=== PATIENT | female | born 1970 | race Caucasian/White ===

== ENCOUNTER 2018-11-17 05:08 | Inpatient (IN) | payer OTHER ==
[~2018-11-17] VITALS: Ht 154.9 cm; Wt 108.9 kg
[2018-11-17 05:09] VITALS: BP 135/66
--- NOTE | 2018-11-17 05:15 | NUR ---
PT PRESENTS TO ED FOR EVALUATION OF ABDOMINAL PAIN WITH N/V X 4 HRS. AAO X4, GCS 15, ABLE TO SPEAK WITH FULL COMPLETE SENTENCES. PUPILS PERRLA 3/3 MM. AMBULATORY WITH STEADY GAIT. RESPIRATIONS EVEN AND UNLABORED, BL LUNG CLEAR. SKIN WARM/PINK/DRY, +PMSC. ABDOMEN SOFT, NON- DISTENDED, ACTIVE BOWEL SOUND X 4. VSS, STATED ABDOMINAL PAIN 10/10. DR. ABEBE MADE AWARE OF PT STATUS
--- NOTE | 2018-11-17 05:15 | NUR ---
PT TAKEN TO BED 9
--- NOTE | 2018-11-17 05:20 | NUR ---
Dr. Zuniga evaluating patient at bedside.
[2018-11-17] MEDS ORDERED: NACL 0.9% 1,000 ML IV ONE ×2 (05:25→05:40)
[2018-11-17] MEDS ORDERED: MORPHINE SULFATE 4 MG/ML SYR IVP ONE ×3 (05:25→08:10)
[2018-11-17] MEDS ORDERED: ONDANSETRON 4 MG/2 ML VIAL IVP ONE ×2 (05:25→05:40)
[2018-11-17 05:39] LABS: BASOPHILS % (AUTO) 0.3 % (0.0-2.0); EOSINOPHILS # (AUTO) 0.2 K/uL (0-0.4); HEMOGLOBIN 14.7 g/dL (12.0-16.0); LYMPHOCYTES # (AUTO) 1.4 K/uL (2.5-16.5); LYMPHOCYTES % (AUTO) 12.6 % (20.5-51.1); MEAN CORPUSCULAR HEMOGLOBIN 28 pg (27-31); MEAN CORPUSCULAR HGB CONC 33 g/dL (33-37); MONOCYTES # (AUTO) 0.7 K/uL (0.8-1.0); MONOCYTES % (AUTO) 6.1 % (1.7-9.3); NEUTROPHILS # (AUTO) 9.1 K/uL (1.8-7.7); PLATELET COUNT (AUTO) 218 K/uL (140-450); RED BLOOD CELL COUNT(AUTO) 5.17 MIL/uL (4.20-5.40); RED CELL DISTRIBUTION WIDTH 14.4 % (11.6-13.7); WHITE BLOOD COUNT (AUTO) 11.5 K/uL (4.8-10.8)
[2018-11-17] MEDS ORDERED: ONDANSETRON 4 MG/2 ML VIAL ONE (05:56)
[2018-11-17] MEDS ORDERED: MORPHINE SULFATE 4 MG/ML SYR ONE (05:57)
--- NOTE | 2018-11-17 05:57 | NUR ---
ORDER WRITTEN BY BUT NOT SHOW IN [facility] AND [facility]. UNABLE TO RESOLVE ISSUE THIS TIME. CONTINUE TO ADMINISTER NSS IV TO RUN 100 ML/HR, ZOFRAN 4 MG IVP X1, MORPHINE 4 MG IVP X1. WILL CONTINUE TO MONITOR
--- NOTE | 2018-11-17 06:06 | NUR ---
Ultrasound at bedside.
[2018-11-17 06:08] LABS: ANION GAP 13.6 (8-16); CREATININE 0.7 mg/dL (0.6-1.3); POTASSIUM 3.6 mmol/L (3.5-5.1)
[2018-11-17 06:15] LABS: ALBUMIN 3.7 g/dL (3.4-5.0); TOTAL BILIRUBIN 3.2 mg/dL (0.0-1.0)
[2018-11-17 07:06] LABS: APPEARANCE,URINE SL CLOUDY (CLEAR); BILIRUBIN,URINE 3+ (NEGATIVE); BLOOD, URINE NEGATIVE (NEGATIVE); COLOR,URINE ORANGE (YELLOW); LEUKOCYTE ESTERASE ,URINE TRACE (NEGATIVE); NITRITE, URINE NEGATIVE (NEGATIVE); UGLUCOSE TRACE (NEGATIVE)
[2018-11-17 07:08] LABS: RBC,URINE NONE SEEN /HPF (0-5); WBC,URINE 0-5 (RARE) /HPF (0-5)
--- NOTE | 2018-11-17 07:23 | NUR ---
REPORT GIVEN TO YAHIR COLLINS. NSS IV 100 ML/ML STILL RUNNING. TOTAL INTAKE 150 ML AT THIS TIME
--- NOTE | 2018-11-17 07:30 | NUR ---
RECEIVED PT FROM PM NURSE. PT AWAKE, ALERT. ABLE TO MAKE NEEDS KNOWN. CITIZEN OF [place] SPEAKING. BEDSIDEM ONTIOR SHOWS HR 58-65S. BP 113/70. ROOM AIR, O2 SATS 95%. INTRODUCED MYSELF. SAFETY CHECKED. WILL CONTINUE TO MONITOR.
--- NOTE | 2018-11-17 07:35 | NUR ---
PT HAS IV TO RIGHT FA # 20 RUNNING NS AT 100 MLS/HR .
[2018-11-17] MEDS: NACL 0.9% 1,000 ML IV SCH ×2 (08:14→10:13)
[2018-11-17] MEDS ORDERED: ONDANSETRON 4 MG/2 ML VIAL IVP PRN (08:15)
[2018-11-17] MEDS ORDERED: LORazepam 2 MG/ML VIAL IVP PRN (08:15)
[2018-11-17 09:15] VITALS: BP 114/67
--- NOTE | 2018-11-17 09:15 | NUR ---
RECEIVED BEDSIDE REPORT FROM KARINA SINCLAIR. PT STABLE, AWAKE, AND ALERT. DENIES PAIN. NO SIGNS OF DISTRESS NOTED. NO INFLAMMATION, REDNESS, OR SWELLING NOTED ON IV SITE. CALL MICHAELS WITHIN REACH. SAFETY MEASURES IN PLACE. PLAN OF CARE REVIEWED.
--- NOTE | 2018-11-17 09:15 | NUR ---
PT TRASSFERRED TO [facility] A BY WHEELCHAIR.AWAKE, ALERT. RA, NO SOB. REPORT GIVEN. PT WALKED FROM HALLWAY TO PT'S ROOM. VITALS STABLE AT THIS TIME.
--- NOTE | 2018-11-17 09:59 | NUR ---
PATIENT HAS BEEN SCREENED AND CATEGORIZED HIGH NUTRITION RISK. PATIENT WILL BE SEEN WITHIN 1-2 DAYS OF ADMISSION. 11/17/18-11/18/[address]
--- NOTE | 2018-11-17 11:15 | NUR ---
MORPHINE AND ZOFRAN NON-ADMIN IN THE [facility] D/T ADMINISTERED IN THE ER PRIOR TO ARRIVING IN THE UNIT.
[2018-11-17] MEDS: PIPER/TAZO 3.375GM/D5W PREMIX 50 ML IV SCH ×2 (13:04→20:35)
[2018-11-17] MEDS: MORPHINE SULFATE 2 MG/ML SYR IVP PRN ×2 (13:05→20:37)
--- NOTE | 2018-11-17 13:05 | NUR ---
ADMINISTERED SCHEDULED MEDICATION AND MORPHINE FOR 5/10 [id number] PAIN. PT TOLERATED WELL. NO OTHER NEEDS AT THIS TIME.
--- NOTE | 2018-11-17 15:30 | NUR ---
PT STABLE, SLEEPING, BUT EASILY AROUSABLE. NO OTHER NEEDS AT THIS TIME.
[2018-11-17 16:00] VITALS: BP 132/81
--- NOTE | 2018-11-17 17:25 | NUR ---
SPOKE WITH PATIENT REGARDING PLAN OF CARE.
--- NOTE | 2018-11-17 19:10 | NUR ---
RECEIVED PT FROM DAY SHIFT NURSE PT COMORAN SPEAKER AAOX4 AMBULATORY IV ON RT HAND INFUSING WELL DENIES ANY PAINAT THIS TIME PT NKPO FOR DX PANCREATITIS INITIAL ASSESSMENT DONE
--- NOTE | 2018-11-17 19:20 | NUR ---
ENDORSED PT TO RN AMY FOR CONTINUITY OF CARE. PT STABLE, AWAKE, AND ALERT.
--- NOTE | 2018-11-17 21:30 | NUR ---
DR LEON IS HERE AND SEE THE PT .AND DR FLORES ORDER FOR ERCP TOMORROW
[2018-11-18] VITALS: BP 114/73
--- NOTE | 2018-11-18 | NUR ---
PT RESTING ON BED IV ON RT HAND INFUSING WELL NOT DISTRESS NOTED AT THIS TIME
--- NOTE | 2018-11-18 04:00 | NUR ---
SPONGE BATH GIVEN LILNEN CHANGED DENIES ANY PAIN AT THIS TIME, VOIDING WELL IV ON RT HAND INFUSING WELL
[2018-11-18] MEDS: NACL 0.9% 1,000 ML IV SCH ×2 (04:16→19:00)
[2018-11-18] MEDS: PIPER/TAZO 3.375GM/D5W PREMIX 50 ML IV SCH ×3 (04:25→21:10)
--- NOTE | 2018-11-18 05:04 | NUR ---
PT NPO DENIES ANY PAIN AT THIS TIME ON SCHEDULE TO HAVE ERCP TODAY BY DR FINNEGAN
[2018-11-18] MEDS: MORPHINE SULFATE 2 MG/ML SYR IVP PRN ×3 (06:19→22:20)
[2018-11-18 06:23] LABS: BASOPHILS % (AUTO) 0.2 % (0.0-2.0); EOSINOPHILS % (AUTO) 0.1 % (0.0-4.0); HEMATOCRIT 42.8 % (36-48); HEMOGLOBIN 13.7 g/dL (12.0-16.0); LYMPHOCYTES # (AUTO) 1.5 K/uL (2.5-16.5); LYMPHOCYTES % (AUTO) 11.6 % (20.5-51.1); MEAN CORPUSCULAR HEMOGLOBIN 28 pg (27-31); MEAN CORPUSCULAR HGB CONC 32 g/dL (33-37); MEAN CORPUSCULAR VOLUME 88.4 fL (80-94); MONOCYTES # (AUTO) 0.8 K/uL (0.8-1.0); NEUTROPHILS # (AUTO) 10.9 K/uL (1.8-7.7); NEUTROPHILS % (AUTO) 82.1 % (42.2-75.2); PLATELET COUNT (AUTO) 206 K/uL (140-450); RED BLOOD CELL COUNT(AUTO) 4.84 MIL/uL (4.20-5.40); RED CELL DISTRIBUTION WIDTH 14.3 % (11.6-13.7); WHITE BLOOD COUNT (AUTO) 13.2 K/uL (4.8-10.8)
--- NOTE | 2018-11-18 06:27 | NUR ---
AFTER LPAIN MEDIC GIVEN PT GETTING SLEEP
[2018-11-18 06:38] LABS: ANION GAP 9.2 (8-16); CARBON DIOXIDE 25.8 mmol/L (21-32); CREATININE 0.6 mg/dL (0.6-1.3); MAGNESIUM 1.9 mg/dL (1.8-2.4); TOTAL BILIRUBIN 1.1 mg/dL (0.0-1.0)
[2018-11-18 06:54] LABS: PROTHROMBIN TIME 10.8 secs (10.8-13.4)
--- NOTE | 2018-11-18 07:10 | NUR ---
RECEIVED BEDSIDE REPORT FROM KARINA REYES. PT STABLE, AWAKE, AND ALERT. NO SIGNS OF DISTRESS NOTED. DENIES PAIN. NO INFLAMMATION, REDNESS, OR SWELLING NOTED ON IV SITE. CALL MICHAELS WITHIN REACH. BED IN LOW POSITION. SAFETY MEASURES IN PLACE. PLAN OF CARE REVIEWED.
[2018-11-18 08:00] VITALS: BP 121/76
--- NOTE | 2018-11-18 10:30 | NUR ---
ADMINISTERED MORPHINE FOR 7/10 ABDOMINAL PAIN. PT TOLERATED WELL. NO OTHER NEEDS AT THIS TIME.
--- NOTE | 2018-11-18 12:30 | NUR ---
PT STABLE, AWAKE, AND ALERT. INSTRUCTED PT REGARDING PLAN OF CARE. NO OTHER NEEDS AT THIS TIME.
--- NOTE | 2018-11-18 13:30 | NUR ---
11/18/18 RD INITIAL ASSESSMENT COMPLETED PLEASE REFER TO NUTRITION ASSESSMENT UNDER CARE ACTIVITY FOR ESTIMATED NUTRITIONAL NEEDS. 1. CONTINUE NPO MEDICALLY APPROPRIATE 2. IF/WHEN PATIENT IS MEDICALLY STABLE CONSIDER ADVANCING TO CLEAR LIQUID DIET FOLLOWED BY FULL LIQUID AND BLAND DIET TOLERATED 3. RD PROVIDED NUTRITION EDUCATION FOR PANCREATITIS 4. RD TO FOLLOW-UP 3-5 DAYS, MODERATE RISK SILVIO BATES RD
[2018-11-18] MEDS ORDERED: PROPOFOL 200 MG/20 ML VIAL IV ONE (13:58)
[2018-11-18] MEDS ORDERED: KCL 20 MEQ/WATER INJ PREMIX 100 ML IV SCH (14:00)
[2018-11-18] MEDS ORDERED: MIDAZOLAM 2 MG/2 ML VIAL ONE (14:03)
--- NOTE | 2018-11-18 14:05 | NUR ---
RECEIVED TELEPHONE ORDER FROM DR. ISRAEL FOR K-RIDER 40MEQ IV OVER 4 HRS. PT IS IN THE OR FOR ERCP, PACU WILL GIVE 1ST BAG OF K-RIDER 20MEQ IV AFTER PROCEDURE, 2ND BAG K-RIDER 20MEQ IV WILL BE GIVEN IN THE UNIT AFTER 1ST BAG IS DONE INFUSING.
--- NOTE | 2018-11-18 15:10 | NUR ---
PT ARRIVED IN THE UNIT FROM PACU WITH K-RIDER 20MEQ IV INFUSING. PT STABLE.
--- NOTE | 2018-11-18 15:50 | NUR ---
Received telephone order from Dr Alatorre: CBC, CMP, & lipase in am, & NPO except meds after midnight for lap camilla tomorrow. Orders noted. Pt aware & agree with plan of care.
[2018-11-18 16:00] VITALS: BP 114/63
[2018-11-18] MEDS: KCL 20 MEQ/WATER INJ PREMIX 100 ML IV SCH ×2 (16:15→17:30)
--- NOTE | 2018-11-18 17:30 | NUR ---
ADMINISTERED 2ND BAG OF K-RIDER 20MEQ IV. PT TOLERATED WELL.
--- NOTE | 2018-11-18 19:10 | NUR ---
ENDORSED PT TO BRANCH ADMINISTRATOR NURSE. PT STABLE, AWAKE, AND ALERT.
--- NOTE | 2018-11-18 19:11 | NUR ---
RECEIVED REPORT FROM RN SARINA GONZALEZ FOR CONTINUITY OF CARE. PT A/OX4 ON ROOM AIR, JAPANESE SPEAKING. PT IS ABLE TO MAKE NEEDS KNOWN, ABLE TO FOLLOW COMMANDS. PT AMBULATES WITH STEADY GAIT AND SKIN IS INTACT. PT HAS A 20G IV TO RIGHT HAND, ASYMPTOMATIC AND INTACT. VITAL SIGNS WITHIN NORMAL LIMITS. PT STABLE, DENIES HAVING ANY PAIN, NO SIGNS OF DISTRESS NOTED AT THIS TIME. PT POSITIONED FOR COMFORT. BED IN LOWEST POSITION, BED ALARM ON. WILL CONTINUE TO MONITOR.
--- NOTE | 2018-11-18 21:10 | NUR ---
ADMINISTERED SCHEDULED MEDICATIONS, PT TOLERATING WELL. WILL CONTINUE TO MONITOR PT.
--- NOTE | 2018-11-18 23:45 | NUR ---
VITAL SIGNS WITHIN NORMAL LIMITS. PT STABLE, DENIES HAVING ANY PAIN, NO SIGNS OF DISTRESS NOTED AT THIS TIME. PT POSITIONED FOR COMFORT. BED IN LOWEST POSITION, BED ALARM ON. WILL CONTINUE TO MONITOR.
[2018-11-19] VITALS: BP 135/75
[2018-11-19] MEDS: NACL 0.9% 1,000 ML IV SCH (00:58)
--- NOTE | 2018-11-19 01:55 | NUR ---
TEMPERATURE SLIGHTLY ELEVATED AT 99.8, TURNED OFF WARM TEMPERATURE BECAUSE ROOM IS VERY HOT, AND TOOK OFF PT THICK PLUSH BLANKET, WILL REASSESS TEMP. OTHER VITAL SIGNS WITHIN NORMAL LIMITS. PT STABLE, DENIES HAVING ANY PAIN, NO SIGNS OF DISTRESS NOTED AT THIS TIME. PT POSITIONED FOR COMFORT. BED IN LOWEST POSITION, BED ALARM ON. WILL CONTINUE TO MONITOR.
--- NOTE | 2018-11-19 05:00 | NUR ---
GOT CONSENT FOR BLOOD TRANSFUSION.
[2018-11-19] MEDS: PIPER/TAZO 3.375GM/D5W PREMIX 50 ML IV SCH ×3 (05:06→20:27)
--- NOTE | 2018-11-19 07:15 | NUR ---
PT HAS BEEN TAKEN TO OR.
--- NOTE | 2018-11-19 07:20 | NUR ---
RECEIVED PT'S REPORT FROM SHANK CEMENTER HAND NURSE SUN. PT WENT FOR CHOLECYSTECTOMY SX.
--- NOTE | 2018-11-19 07:24 | NUR ---
ENDORSED PT TO DAY SHIFT RN STEVEN FOR CONTINUITY OF CARE. PT IN STABLE CONDITION.
[2018-11-19 07:39] LABS: BASOPHILS # (AUTO) 0.1 K/uL (0.00-0.22); BASOPHILS % (AUTO) 0.4 % (0.0-2.0); EOSINOPHILS # (AUTO) 0.1 K/uL (0-0.4); EOSINOPHILS % (AUTO) 0.4 % (0.0-4.0); HEMATOCRIT 40.7 % (36-48); HEMOGLOBIN 13.2 g/dL (12.0-16.0); LYMPHOCYTES # (AUTO) 2.3 K/uL (2.5-16.5); LYMPHOCYTES % (AUTO) 14.8 % (20.5-51.1); MEAN CORPUSCULAR HEMOGLOBIN 29 pg (27-31); MEAN CORPUSCULAR HGB CONC 32 g/dL (33-37); MEAN CORPUSCULAR VOLUME 87.8 fL (80-94); MONOCYTES # (AUTO) 1.3 K/uL (0.8-1.0); MONOCYTES % (AUTO) 8.3 % (1.7-9.3); NEUTROPHILS # (AUTO) 11.9 K/uL (1.8-7.7); NEUTROPHILS % (AUTO) 76.1 % (42.2-75.2); PLATELET COUNT (AUTO) 215 K/uL (140-450); RED BLOOD CELL COUNT(AUTO) 4.63 MIL/uL (4.20-5.40); RED CELL DISTRIBUTION WIDTH 14.4 % (11.6-13.7); WHITE BLOOD COUNT (AUTO) 15.6 K/uL (4.8-10.8)
[2018-11-19] MEDS ORDERED: DESFLURANE 240 ML BTL INH ONE (07:42)
[2018-11-19] MEDS ORDERED: KETOROLAC 30 MG/ML VIAL ONE (07:42)
[2018-11-19] MEDS ORDERED: GLYCOPYRROLATE 0.2 MG/ML VIAL ONE (07:42)
[2018-11-19] MEDS ORDERED: DEXAMETHASONE 4 MG/ML VIAL ONE (07:42)
[2018-11-19] MEDS ORDERED: PHENYLEPHRINE 10 MG/ML VIAL ONE (07:42)
[2018-11-19] MEDS ORDERED: PROPOFOL 200 MG/20 ML VIAL IV ONE (07:42)
[2018-11-19] MEDS ORDERED: ROCURONIUM 50 MG/5 ML VIAL IV ONE (07:42)
[2018-11-19] MEDS ORDERED: ONDANSETRON 4 MG/2 ML VIAL ONE (07:42)
[2018-11-19] MEDS ORDERED: BUPIVACAINE-MPF/EPI 0.5% 30 ML VIAL INJ ONE (07:46)
[2018-11-19] MEDS ORDERED: fentaNYL 0.05 MG/ML VIAL ONE (07:47)
[2018-11-19] MEDS ORDERED: HYDROmorphone PFS 2 MG/ML SYR ONE (07:47)
[2018-11-19] MEDS ORDERED: HYDROmorphone 1 MG/ML AMP IVP PRN ×2 (08:05)
[2018-11-19] MEDS ORDERED: ONDANSETRON 4 MG/2 ML VIAL IVP PRN (08:05)
[2018-11-19 08:07] LABS: CARBON DIOXIDE 27.1 mmol/L (21-32); CREATININE 0.6 mg/dL (0.6-1.3); POTASSIUM 3.1 mmol/L (3.5-5.1)
[2018-11-19 08:12] LABS: ALBUMIN 2.9 g/dL (3.4-5.0); TOTAL BILIRUBIN 0.9 mg/dL (0.0-1.0)
[2018-11-19] MEDS ORDERED: THROMBIN KIT 20 MU VIAL TP ONE (08:54)
--- NOTE | 2018-11-19 10:15 | NUR ---
PT IS BACK FROM OR. PT IS AAOX4 ON 4L SIMPLE MASK, NO S/S OF ACUTE DISTRESS NOTED. PT IS ABLE TO FOLLOW COMMANDS. IV CATH 20G IV TO RIGHT HAND, ASYMPTOMATIC AND INTACT. VITAL SIGNS WITHIN NORMAL LIMITS. PT DENIES NAUSEA, PAIN IS A LITTLE. BED IN LOWEST POSITION, CALL LIGHT WITHIN REACH. WILL CONTINUE TO MONITOR. Addendum: 11/19/18 at 1202 by Moe Murphy RN BRENT ANIKET WAS DONE. INCISIONS CLEAN AND DRY WITH DERMABOND GLUE.
[2018-11-19 10:30] VITALS: BP 116/62
[2018-11-19] MEDS: DEXT 5% / NACL 0.45% 1,000 ML IV SCH ×2 (10:45→20:26)
--- NOTE | 2018-11-19 13:00 | NUR ---
SPOKE WITH DR ISRAEL OVER THE PHONE, MADE HIM AWARE OF K 3.1, ORDERED PO 40MEQ K-DUR ONCE. VERBALLY READ BACK.
[2018-11-19] MEDS ORDERED: POTASSIUM CHLORIDE 10 MEQ TABER PO SCH (13:30)
[2018-11-19 16:00] VITALS: BP 114/72
--- NOTE | 2018-11-19 16:08 | NUR ---
SPOKE WITH DR ISRAEL OVER THE PHONE, REPORT PT C/O ABD SEVERE PAIN. DR ISRAEL ORDERED TORADOL 30MG IVP PRN Q6H.
[2018-11-19] MEDS ORDERED: KETOROLAC 30 MG/ML VIAL IVP PRN (16:10)
[2018-11-19] MEDS: HYDROcodone/APAP 5/325 MG 1 TAB TAB PO PRN ×2 (17:18→22:23)
--- NOTE | 2018-11-19 18:35 | NUR ---
PT WENT TO BATHROOM WITH ASSISTANCE FROM HAND MARKER, PT URINATED.
--- NOTE | 2018-11-19 19:20 | NUR ---
ENDORSED PT TO DRIVER SUPERVISOR RN. PT IN STABLE CONDITION.
--- NOTE | 2018-11-19 19:21 | NUR ---
RECEIVED REPORT FROM DAY SHIFT RN. PT IS A&OX4. MAURITIAN SPEAKING. 2 SONS AT BEDSIDE. RESPIRATIONS ARE EQUAL AND UNLABORED. PT STATES PAIN TOLERABLE AT THIS TIME. S/P LAP ANIKET TODAY. 4 INCISIONS OPEN TO AIR. NO DRAINAGE. OTHERWISE SKIN INTACT. PT IS AMBULATORY. IV ON R HAND 20 G IVF INFUSING PER ORDERS. PLAN OF CARE DISCUSSED. SAFETY MEASURES ARE IN PLACE. CALL LIGHT WITHIN REACH.
--- NOTE | 2018-11-19 20:27 | NUR ---
DUE MEDICATIONS ADMINISTERED PT TOLERATED WELL. ANSWERED ALL QUESTIONS FROM PATIENT AND FAMILY. WILL CONTINUE TO MONITOR.
[2018-11-19 23:59] VITALS: BP 116/74
--- NOTE | 2018-11-20 | NUR ---
VS ARE WITHIN NORMAL LIMITS. PT DENIES ANY PAIN AT THIS TIME. ALL NEEDS MET. CALL LIGHT WITHIN REACH.
--- NOTE | 2018-11-20 03:00 | NUR ---
PT RESTING COMFORTABLY IN BED. RESPIRATIONS ARE EQUAL AND UNLABORED. CALL LIGHT WITHIN REACH
[2018-11-20] MEDS: DEXT 5% / NACL 0.45% 1,000 ML IV SCH ×2 (05:06→15:15)
[2018-11-20] MEDS: PIPER/TAZO 3.375GM/D5W PREMIX 50 ML IV SCH ×2 (05:07→12:44)
--- NOTE | 2018-11-20 05:07 | NUR ---
ZOSYN NOW INFUSING PER ORDERS. ALL NEEDS MET AT THIS TIME. WILL CONTINUE TO MONITOR.
--- NOTE | 2018-11-20 07:10 | NUR ---
ENDORSED TO DAY SHIFT RN. PT IS IN STABLE CONDITION.
--- NOTE | 2018-11-20 07:13 | NUR ---
RECEIVED REPORT FROM DAY SHIFT RN. PT IS A&OX4. NEPALI SPEAKING. PT STATES PAIN TOLERABLE AT THIS TIME. S/P LAP ANIKET, 4 INCISIONS DERMABOUND GLUE OPEN TO AIR. NO DRAINAGE. SKIN IS OTHERWISE INTACT. TOLERATING CLEAR LIQUIDS WELL- NO C/O N/V. BOWEL SOUNDS PRESENT IN ALL QUADRANTS. PT IS AMBULATORY. IV ON R HAND 20 G PATENT AND ASYMPTOMATIC, INFUSING IVF PER ORDERS. PLAN OF CARE DISCUSSED. SAFETY MEASURES ARE IN PLACE. CALL LIGHT WITHIN REACH.
[2018-11-20 07:19] LABS: ALBUMIN 2.5 g/dL (3.4-5.0); ANION GAP 8.3 (8-16); CREATININE 0.6 mg/dL (0.6-1.3); POTASSIUM 3.3 mmol/L (3.5-5.1); TOTAL BILIRUBIN 0.5 mg/dL (0.0-1.0)
[2018-11-20 07:37] LABS: BASOPHILS % (AUTO) 0.1 % (0.0-2.0); EOSINOPHILS # (AUTO) 0.1 K/uL (0-0.4); EOSINOPHILS % (AUTO) 0.6 % (0.0-4.0); HEMATOCRIT 37.7 % (36-48); HEMOGLOBIN 12.1 g/dL (12.0-16.0); LYMPHOCYTES % (AUTO) 12.7 % (20.5-51.1); MEAN CORPUSCULAR HEMOGLOBIN 28 pg (27-31); MEAN CORPUSCULAR HGB CONC 32 g/dL (33-37); MEAN CORPUSCULAR VOLUME 88.3 fL (80-94); MONOCYTES # (AUTO) 1.2 K/uL (0.8-1.0); MONOCYTES % (AUTO) 7.7 % (1.7-9.3); NEUTROPHILS # (AUTO) 12.7 K/uL (1.8-7.7); NEUTROPHILS % (AUTO) 78.9 % (42.2-75.2); PLATELET COUNT (AUTO) 205 K/uL (140-450); RED BLOOD CELL COUNT(AUTO) 4.27 MIL/uL (4.20-5.40); RED CELL DISTRIBUTION WIDTH 14.7 % (11.6-13.7); WHITE BLOOD COUNT (AUTO) 16.1 K/uL (4.8-10.8)
[2018-11-20 08:00] VITALS: BP 125/75
[2018-11-20] MEDS: HYDROcodone/APAP 5/325 MG 1 TAB TAB PO PRN (09:37)
[2018-11-20] MEDS ORDERED: ACET-9525 PO (13:34)
[2018-11-20] MEDS ORDERED: POTASSIUM CHLORIDE 10 MEQ TABER PO SCH (14:00)
--- NOTE | 2018-11-20 15:23 | NUR ---
D/C PHOTOS TAKEN OF SURGICAL WOUND ON ABD.
--- NOTE | 2018-11-20 16:00 | NUR ---
DISCHARGE PAPERWORK, INCLUDING INSTRUCTIONS TO F/U WITH DR. LEON (SURGEON) AND PCP WITHIN ONE WEEK, GIVEN TO PT. PT IS SYRIAC SPEAKING BUT PREFERS SON AT BEDSIDE TO TRANSLATE. NEW RX GIVEN TO PT. MEDICATION TEACHING GIVEN. PT INSTRUCTED ON HOW TO CARE FOR INCISIONAL SITES. OFFERED PNEUMOVAX BUT PATIENT REFUSED. VACCINATION DECLINATION TEACHING GIVEN. FLU VACCINE UP TO DATE. PT AND SON VERBALIZED COMPLETE UNDERSTANDING OF ALL D/C TEACHING. IV SITE REMOVED WITH MINIMAL BLOOD LOSS AND LUMEN COMPLETELY INTACT. ID BANDS REMOVED. ALL PERSONAL BELONGINGS ARE WITH PATIENT. DISCHARGED FROM UNIT VIA WHEELCHAIR AND WILL GO HOME WITH SON VIA PRIVATE VEHICLE. PT IN STABLE CONDITION.
[2018-11-20] MEDS ORDERED: [UNRECOGNIZED DRUG - CODE] SQ (16:14)
--- NOTE | 2018-11-22 11:26 | NUR ---
CM NOTE ATTEMPTED TO SCHEDULE AN OUTPATIENT FOLLOW UP APPOINTMENT WITH PCP FOR PATIENT. PER SOFIA OF [facility] (PCP) PH# [phone], CLINIC ADDRESS [address] [id number], THEY ARE A WALK-IN CLINIC AND THEY DON'T SCHEDULE APPOINTMENTS AND PATIENT JUST HAS TO GO TO THEIR CLINIC TO BE SEEN BY THE DOCTOR. CALLED PATIENT PH# [phone] WITH DUSTY MONTGOMERY BECAUSE PATIENT IS [place] SPEAKING ONLY AND PATIENT WAS INFORMED THAT SHE HAS TO FOLLOW UP WITH HER PCP WITHIN A WEEK OF DISCHARGE AND INFORMATION REGARDING HER PCP INCLUDING PHONE NUMBER AND CLINIC ADDRESS WERE GIVEN TO THE PATIENT. PATIENT VERBALIZED UNDERSTANDING AND STATED THAT SHE WILL GO TO SEE HER PCP WITHIN THE WEEK. Addendum: 11/22/18 at [address] [facility] SCHEDULE MONDAYS TO FRIDAYS F 8AM-8PM, SATURDAYS 8:30AM-5PM, SUNDAYS 9AM-4PM, ADRESS: [address] [facility] [place] [address], PH# [phone] Addendum: 11/22/18 at 1132 by Génesis Brenner CM [facility] SCHEDULE INFORMATION ALSO GIVEN TO THE PATIENT DURING THIS CALL.
== END 2018-11-20 16:00 | disposition home or self-care (01) | DRG 263 ==
LOC: MED 05:08 → MTU 08:14
PROVIDERS: ADMIT Hospitalist; ATTEND Hospitalist
PROC: BF131ZZ Fluoroscopy of Gallbladder and Bile Ducts using Low Osmolar Contrast (ICD-10-PCS; 2018-11-18)
PROC: 0FC98ZZ Extirpation of Matter from Common Bile Duct, Via Natural or Artificial Opening Endoscopic (ICD-10-PCS; principal; 2018-11-18 14:00)
PROC: 0FT44ZZ Resection of Gallbladder, Percutaneous Endoscopic Approach (ICD-10-PCS; 2018-11-19)
DX: K85.10 Biliary acute pancreatitis without necrosis or infection (principal); E66.01 Morbid (severe) obesity due to excess calories; J45.909 Unspecified asthma, uncomplicated; K80.51 Calculus of bile duct without cholangitis or cholecystitis with obstruction; Z90.49 Acquired absence of other specified parts of digestive tract; Z68.42 Body mass index [BMI] 45.0-49.9, adult; K80.70 Calculus of gallbladder and bile duct without cholecystitis without obstruction; D72.829 Elevated white blood cell count, unspecified
CPT/HCPCS: 36415; 71045; 74330; 76705; 80053; 81001; 82150; 83690; 83735; 85025; 85610; 85730; 86886; 86900; 86901; 87081; 88304; 93005; 96374; 99285; C1727; C1769; J1100; J1170; J1885; J2250; J2270; J2370; J2405; J2543; J2704; J3010; J3480; J3490; J7030; Q0092

== ENCOUNTER 2020-08-09 09:48 | Emergency (ER) | payer OTHER ==
[~2020-08-09] VITALS: Ht 162.6 cm; Wt 112.0 kg
[~2020-08-09 09:48] MED LIST: ACET-9525 PO; [UNRECOGNIZED DRUG - CODE] SQ
[2020-08-09 09:51] VITALS: BP 117/60
--- NOTE | 2020-08-09 10:06 | NUR ---
49 y/o female from home c/o dry cough and sore throat x 4 days. Denies chest pain/sob. RR even and unlabored. Pt afebrile upon arrival. Denies body aches. 5/10 sharp pain with swallowing. Denies N/V/D. Awake and alert. VSS medhx: asthma
--- NOTE | 2020-08-09 10:07 | NUR ---
Dr Koenig at bedside examining pt
[2020-08-09] MEDS ORDERED: KETOROLAC 60 MG/2 ML VIAL IM ONE (10:10)
--- NOTE | 2020-08-09 10:47 | NUR ---
Pt states decrease in pain after medication. VSS
[2020-08-09 10:58] VITALS: BP 117/60
--- NOTE | 2020-08-09 10:58 | NUR ---
Patient discharged with v/s stable. Written and verbal after care instructions given and explained. Patient alert, oriented and verbalized understanding of instructions. Ambulatory with steady gait. All questions addressed prior to discharge. ID band removed. Patient advised to follow up with PMD. Rx of Motrin 800mg, Cipro 500mg, Albuterol 90mcg/actuation, and Prednisone 20mg given. Patient educated on indication of medication including possible reaction and side effects. Opportunity to ask questions provided and answered.
== END 2020-08-09 10:58 | disposition home or self-care (01) ==
LOC: MED 09:48
DX: N39.0 Urinary tract infection, site not specified (principal); R51.9 Headache, unspecified; J02.9 Acute pharyngitis, unspecified; R05 Cough; J45.909 Unspecified asthma, uncomplicated; Z79.899 Other long term (current) drug therapy; Z90.49 Acquired absence of other specified parts of digestive tract
CPT/HCPCS: 81002; 81025; 96372; 99283; J1885

== ENCOUNTER 2020-09-20 23:44 | Emergency (ER) | payer OTHER ==
[~2020-09-20] VITALS: Ht 162.6 cm; Wt 113.4 kg
[2020-09-20 23:50] VITALS: BP 112/79
--- NOTE | 2020-09-20 23:50 | NUR ---
TO TENT# 2 AMBULATORY
--- NOTE | 2020-09-21 00:40 | NUR ---
SEEN AND EXAMINED BY JOSE WITH ORDER AND CARRIED OUT.
[2020-09-21] MEDS ORDERED: ALBUTEROL HFA MDI 90 MCG/ACTUATION 8 GM INH ONE (00:50)
--- NOTE | 2020-09-21 00:55 | NUR ---
SWAB DONE AND SENT TO LAB
--- NOTE | 2020-09-21 01:00 | NUR ---
X RAY DONE BY MYOMO AT THE TENT.
--- NOTE | 2020-09-21 02:20 | NUR ---
RESULTS BACK AND NOTED BY ERMD AND FOR D/C
[2020-09-21 02:54] VITALS: BP 121/80
--- NOTE | 2020-09-21 02:54 | NUR ---
Patient discharged with v/s stable. Written and verbal after care instructions given and explained. Patient alert, oriented and verbalized understanding of instructions. Ambulatory with steady gait. All questions addressed prior to discharge. ID band removed. Patient advised to follow up with PMD. Rx of [id number] MCG given. Patient educated on indication of medication including possible reaction and side effects. Opportunity to ask questions provided and answered.
== END 2020-09-21 02:54 | disposition home or self-care (01) ==
LOC: MED 23:44
DX: R05 Cough (principal); R09.81 Nasal congestion; J02.9 Acute pharyngitis, unspecified; J45.909 Unspecified asthma, uncomplicated; Z20.828 Contact with and (suspected) exposure to other viral communicable diseases; Z79.899 Other long term (current) drug therapy
CPT/HCPCS: 71045; 99284; U0003; 99283

== ENCOUNTER 2021-09-23 14:53 | Emergency (ER) | payer OTHER ==
[~2021-09-23] VITALS: Ht 157.5 cm; Wt 113.5 kg
[2021-09-23 15:20] VITALS: BP 157/100
[2021-09-23] MEDS ORDERED: KETOROLAC 60 MG/2 ML VIAL IM ONE ×2 (16:15→16:18)
[2021-09-23] MEDS ORDERED: predniSONE 20 MG TAB PO ONE (16:35)
[2021-09-23] MEDS ORDERED: ALBUTEROL SULFATE/IPRATROPIU 3 ML SOL IH ONE (16:35)
[2021-09-23] MEDS ORDERED: ALBUTEROL 0.083% 2.5 MG/3 ML NEBU INH ONE (16:35)
--- NOTE | 2021-09-23 16:35 | NUR ---
XRAY AT PATIENT BEDSIDE
--- NOTE | 2021-09-23 16:45 | NUR ---
RT AT BEDSIDE FOR BREATHING TX
--- NOTE | 2021-09-23 16:46 | NUR ---
RESPIRATORY AT PATIENT BEDSIDE
--- NOTE | 2021-09-23 16:53 | NUR ---
50/F BIB SELF WITH C/O COUGH AND SOB FOR TWO DAYS, STATES SHE BEGAN HAVING HEADACHE AND BODYACHES TODAY. REPORTS 8/10 DULL ACHING HEADACHE THAT IS NONRADIATING, DENIES TAKING ANYTHING FOR PAIN. PATIENT DENIES CP, FEVER, N/V/D OR URINARY SYMPTOMS.
[2021-09-23] MEDS ORDERED: PRED20TA5 PO (17:15)
[2021-09-23] MEDS ORDERED: IBUP-2213 PO (17:15)
[2021-09-23] MEDS ORDERED: ALBU0.0912 IH (17:15)
[2021-09-23 18:02] VITALS: BP 129/68
--- NOTE | 2021-09-23 18:03 | NUR ---
Patient discharged with v/s stable. Written and verbal after care instructions given and explained. Patient alert, oriented and verbalized understanding of instructions. Ambulatory with steady gait. All questions addressed prior to discharge. ID band removed. Patient advised to follow up with PMD. Rx of ALBUTEROL SULFATE, IBUPROFEN, PREDNISONE given. Opportunity to ask questions provided and answered.
== END 2021-09-23 18:00 | disposition home or self-care (01) ==
LOC: MED 14:53
DX: J11.1 Influenza due to unidentified influenza virus with other respiratory manifestations (principal); Z79.891 Long term (current) use of opiate analgesic; Z79.899 Other long term (current) drug therapy
CPT/HCPCS: 71045; 81002; 81025; 93005; 94640; 96372; 99283; J1885; J7512; J7613; Q0092

== ENCOUNTER 2021-10-08 14:31 | Emergency (ER) | payer OTHER ==
[~2021-10-08] VITALS: Ht 158.8 cm; Wt 113.9 kg
[~2021-10-08 14:31] MED LIST changes: +ALBU0.0912 IH; +IBUP-2213 PO; +PRED20TA5 PO
[2021-10-08 15:50] VITALS: BP 174/103
--- NOTE | 2021-10-08 15:57 | NUR ---
PT W/C ASSISTED TO ALYSE Cooper
--- NOTE | 2021-10-08 15:58 | NUR ---
Dr. Jain is evaluating pt at bedside
[2021-10-08] MEDS ORDERED: ALBUTEROL SULFATE/IPRATROPIU 3 ML SOL IH ONE (16:05)
[2021-10-08] MEDS ORDERED: ALBUTEROL 0.083% 2.5 MG/3 ML NEBU INH ONE (16:05)
--- NOTE | 2021-10-08 16:07 | NUR ---
PT W/C ASSISTED TO ER BED 6
--- NOTE | 2021-10-08 16:17 | NUR ---
X-RAY AT BEDSIDE.
--- NOTE | 2021-10-08 16:22 | NUR ---
RT AT BEDSIDE.
--- NOTE | 2021-10-08 16:22 | NUR ---
[facility]AT[facility] DRUGS GIVEN ORDERED ENCOURAGED PATIENT FOR INTERMITTENT DEEP BREATHING DURING THERAPY
--- NOTE | 2021-10-08 16:25 | NUR ---
50 Y/O F C/O SOB AND COUGH FOR 2 DAYS, BODY ACHE X 2 DAYS. PMH: ASTHMA
[2021-10-08] MEDS ORDERED: ALBU0.0912 IH (18:43)
[2021-10-08] MEDS ORDERED: AZIT250T4 PO (18:43)
[2021-10-08] MEDS ORDERED: PRED20TA5 PO (18:43)
[2021-10-08 19:06] VITALS: BP 112/60
--- NOTE | 2021-10-08 19:08 | NUR ---
Patient discharged with v/s stable. Written and verbal after care instructions given and explained. Patient alert, oriented and verbalized understanding of instructions. Ambulatory with steady gait. All questions addressed prior to discharge. ID band removed. Patient advised to follow up with PMD. Rx of ALBUTEROL SULFATE, AZITHROMYSIN, PREDNISONE given. Opportunity to ask questions provided and answered.
--- NOTE | 2021-10-08 19:09 | NUR ---
The patient's care was reviewed and supervised by Evelyn Alves RN.
== END 2021-10-08 19:08 | disposition home or self-care (01) ==
LOC: MED 14:31
DX: J20.9 Acute bronchitis, unspecified (principal); Z79.899 Other long term (current) drug therapy
CPT/HCPCS: 71045; 94640; 99285; J7613; Q0092

== ENCOUNTER 2022-08-25 14:32 | Emergency (ER) | payer OTHER ==
[~2022-08-25] VITALS: Ht 158 cm; Wt 117.9 kg
[~2022-08-25 14:32] MED LIST changes: +AZIT250T4 PO
[2022-08-25 15:34] VITALS: BP 120/73
[2022-08-25 18:51] VITALS: BP 120/73
--- NOTE | 2022-08-25 18:51 | NUR ---
Note bridgette in EDM - 08/25/22 at 1854 by MED Patient discharged with v/s stable. Written and verbal after care instructions given and explained. Patient verbalized understanding. Ambulatory with steady gait. All questions addressed prior to discharge. Advised to follow up with PMD.
--- NOTE | 2022-08-25 18:51 | NUR ---
LEFT WITHOUT PAPER WORK.Patient discharged with v/s stable. Written and verbal after care instructions given and explained. Patient verbalized understanding. Ambulatory with steady gait. All questions addressed prior to discharge. Advised to follow up with PMD.
== END 2022-08-25 18:51 | disposition home or self-care (01) ==
LOC: MED 14:32
DX: T16.1XXA Foreign body in right ear, initial encounter (principal); J45.909 Unspecified asthma, uncomplicated; Z79.899 Other long term (current) drug therapy; X58.XXXA Exposure to other specified factors, initial encounter; Y93.89 Activity, other specified; Y92.89 Other specified places as the place of occurrence of the external cause; Y99.8 Other external cause status
CPT/HCPCS: 69200; 99284

== ENCOUNTER 2022-11-03 07:45 | Emergency (ER) | payer OTHER ==
[~2022-11-03] VITALS: Ht 162.6 cm; Wt 116.1 kg
[2022-11-03 07:54] VITALS: BP 118/65
--- NOTE | 2022-11-03 07:59 | NUR ---
PT AMBULATED TO ER BED 1
--- NOTE | 2022-11-03 08:22 | NUR ---
Patient taken to X- Ray via gurney.
--- NOTE | 2022-11-03 08:40 | NUR ---
51 y/o female bib self with c/o productive cough, headache, subjective fevers, headache and loss of appetite x 3 days. Patient denies any nausea or vomiting. Denies any sick contacts at home. Patient has been self medicating with Tylenol and using her nebulizer treatment at home. Patient has mid chest pain when coughing. Medical History: Pre-Diabetes, Asthma NKDA
[2022-11-03] MEDS ORDERED: PROM118S5 PO (09:15)
[2022-11-03] MEDS ORDERED: NAPR-1704 PO (09:15)
[2022-11-03] MEDS ORDERED: AMOX500C25 PO (09:15)
[2022-11-03 09:53] VITALS: BP 109/59
--- NOTE | 2022-11-03 09:53 | NUR ---
Patient discharged with v/s stable. Written and verbal after care instructions given. Patient alert, oriented and verbalized understanding of instructions. Ambulatory with steady gait. All questions addressed prior to discharge. ID band removed. Patient advised to follow up with PMD. Rx of Amoxicillin, Naproxen and Promethazine-DM given. Opportunity to ask questions provided and answered.
--- NOTE | 2022-11-03 09:54 | NUR ---
The patient's care was reviewed and supervised by Evelyn Alves RN.
== END 2022-11-03 09:53 | disposition home or self-care (01) ==
LOC: MED 07:45
DX: B34.9 Viral infection, unspecified (principal); Z20.822 Contact with and (suspected) exposure to COVID-19; R50.9 Fever, unspecified; R05.9 Cough, unspecified; R51.9 Headache, unspecified; J45.909 Unspecified asthma, uncomplicated; Z79.899 Other long term (current) drug therapy; Z90.49 Acquired absence of other specified parts of digestive tract
CPT/HCPCS: 71046; 99284

== ENCOUNTER 2023-06-17 10:59 | Emergency (ER) | payer OTHER ==
[~2023-06-17] VITALS: Ht 162.6 cm; Wt 117.2 kg
[~2023-06-17 10:59] MED LIST changes: +AMOX500C25 PO; +NAPR-1704 PO; +PROM118S5 PO
[2023-06-17 11:30] VITALS: BP 111/60; PULSE 68; RESP 18; TEMP 97.8; O2SAT 96
[2023-06-17 12:00] VITALS: O2SAT 96
[2023-06-17] MEDS ORDERED: COROTSOL RIGHT EAR (13:13)
== END 2023-06-17 13:30 | disposition home or self-care (01) ==
LOC: MED 10:59
DX: S93.401A Sprain of unspecified ligament of right ankle, initial encounter (principal); S00.411A Abrasion of right ear, initial encounter; M25.561 Pain in right knee; J45.909 Unspecified asthma, uncomplicated; Z88.0 Allergy status to penicillin; Z79.899 Other long term (current) drug therapy; Z90.49 Acquired absence of other specified parts of digestive tract; W19.XXXA Unspecified fall, initial encounter; Y93.89 Activity, other specified; Y92.89 Other specified places as the place of occurrence of the external cause; Y99.8 Other external cause status
CPT/HCPCS: 73562; 73610; 73630; 90471; 90715; 99284

== ENCOUNTER 2023-10-06 06:48 | Emergency (ER) | payer OTHER ==
[~2023-10-06] VITALS: Ht 167.6 cm; Wt 99.8 kg
[~2023-10-06 06:48] MED LIST changes: +COROTSOL RIGHT EAR
[2023-10-06 07:07] VITALS: BP 119/57; PULSE 70; RESP 16; TEMP 98.4; O2SAT 93
[2023-10-06] MEDS ORDERED: PROM118S6 PO (07:56)
[2023-10-06 08:56] LABS: FLU B ANTIGEN negative (NEGATIVE)
[2023-10-06 09:06] LABS: FLU A ANTIGEN POSITIVE (NEGATIVE)
[2023-10-06] MEDS ORDERED: TAM75 PO (09:56)
== END 2023-10-06 08:15 | disposition home or self-care (01) ==
LOC: MED 06:48
DX: B34.9 Viral infection, unspecified (principal); Z20.822 Contact with and (suspected) exposure to COVID-19; J45.909 Unspecified asthma, uncomplicated; E11.9 Type 2 diabetes mellitus without complications; Z90.49 Acquired absence of other specified parts of digestive tract; Z79.899 Other long term (current) drug therapy; Z79.1 Long term (current) use of non-steroidal anti-inflammatories (NSAID); Z79.2 Long term (current) use of antibiotics; Z88.0 Allergy status to penicillin
CPT/HCPCS: 99283

== ENCOUNTER 2024-01-02 08:37 | Emergency (ER) | payer OTHER ==
[~2024-01-02] VITALS: Ht 162.6 cm; Wt 105.7 kg
[~2024-01-02 08:37] MED LIST changes: +PROM118S6 PO; +TAM75 PO
[2024-01-02 08:39] VITALS: BP 103/56; PULSE 93; RESP 18; TEMP 98.5; O2SAT 94
[2024-01-02 10:28] LABS: FLU A ANTIGEN negative (NEGATIVE)
[2024-01-02 10:29] LABS: FLU B ANTIGEN negative (NEGATIVE)
[2024-01-02] MEDS ORDERED: PROM118S5 PO (10:36)
[2024-01-02] MEDS ORDERED: AZIT250T4 PO (10:36)
[2024-01-02] MEDS ORDERED: ALBU0.0912 IH (10:36)
[2024-01-02] MEDS ORDERED: CEFP200T20 PO (10:36)
[2024-01-02] MEDS ORDERED: NAPR-54 PO (10:36)
[2024-01-02] MEDS: KETOROLAC 30 MG/ML VIAL IM ONE (10:37)
[2024-01-02 10:50] VITALS: BP 118/71; PULSE 80; RESP 18; TEMP 98.5; O2SAT 95
== END 2024-01-02 10:50 | disposition home or self-care (01) ==
LOC: MED 08:37
DX: J18.9 Pneumonia, unspecified organism (principal); Z20.822 Contact with and (suspected) exposure to COVID-19; J45.909 Unspecified asthma, uncomplicated; E11.9 Type 2 diabetes mellitus without complications; Z79.899 Other long term (current) drug therapy; Z88.0 Allergy status to penicillin
CPT/HCPCS: 71045; 81002; 81025; 87426; 87804; 96372; 99284; J1885